=== PATIENT | female | born 1990 | race American Indian/Alaskan Native ===

== ENCOUNTER 2017-10-13 13:10 | Emergency (ER) | payer OTHER ==
[2017-10-13 13:28] VITALS: BP 119/78
--- NOTE | 2017-10-13 13:31 | EDM.PDOC ---
ED HPI GENERAL MEDICAL PROBLEM - General Chief Complaint: ENT Problem Stated Complaint: EARACHE AND HEADACHE Time Seen by Provider: 10/13/17 13:31 Source of Information: Reports: Patient - History of Present Illness INITIAL COMMENTS - FREE TEXT/NARRATIVE: HISTORY AND PHYSICAL: History of present illness: []Patient presents with right ear pain for 5 days increasing in severity no fever nausea vomiting chills sweats mild sore throat no uptake of voice drooling or trismus Review of systems: As per history of present illness and below otherwise all systems reviewed and negative. Past medical history: As per history of present illness and as reviewed below otherwise noncontributory. Surgical history: As per history of present illness and as reviewed below otherwise noncontributory. Social history: No reported history of drug or alcohol abuse. Family history: As per history of present illness and as reviewed below otherwise noncontributory. Physical exam: HEENT: Atraumatic, normocephalic, pupils reactive, negative for conjunctival pallor or scleral icterus, mucous membranes moist, throat clear, neck supple, nontender, trachea midline. Oropharynx mild erythema no exudate or Sargent no pain with movement of the ear auricles right tympanic membrane is red bulging loss of landmarks no mastoid tenderness left mildly injected with slight diffusion no loss of landmarks no mastoid tenderness Lungs: Clear to auscultation, breath sounds equal bilaterally, chest nontender. Heart: S1S2, regular, negative for clicks, rubs, or JVD. Abdomen: Soft, nondistended, nontender. Negative for masses or hepatosplenomegaly. Negative for costovertebral tenderness. Pelvis: Stable nontender. Genitourinary: Deferred. Rectal: Deferred. Extremities: Atraumatic, negative for cords or calf pain. Neurovascular unremarkable. Neuro: Awake, alert, oriented. Cranial nerves II through XII unremarkable. Cerebellum unremarkable. Motor and sensory unremarkable throughout. Exam nonfocal. Diagnostics: []Clinical Therapeutics: []Serum impaction removed with curette Z-Juan Jose 250 mg Impression: []Right otitis media Serum and impaction cleaned with curette/resolved Definitive disposition and diagnosis as appropriate pending reevaluation and review of above. right ear Pain Score (Numeric/FACES): 7 - Related Data Allergies Allergy/AdvReac Type Severity Reaction Status Date / Time amoxicillin Allergy Airway Verified 10/13/17 13:23 Tightness Home Meds: Home Meds . [No Known Home Meds] 10/13/17 [History] Past Medical History - Past Health History Medical/Surgical History: Denies Medical/Surgical History - Infectious Disease History Infectious Disease History: Reports: Chicken Pox Social & Family History - Tobacco Use Smoking Status *Q: Never Smoker Second Hand Smoke Exposure: No - Alcohol Use Days Per Week of Alcohol Use: 2 Number of Drinks Per Day: 4 Total Drinks Per Week: 8 - Recreational Drug Use Recreational Drug Use: No ED ROS GENERAL - Review of Systems Review Of Systems: ROS reveals no pertinent complaints other than HPI. ED EXAM, GENERAL - Physical Exam Exam: See Below Course - Vital Signs Last Recorded V/S: Last Vital Signs Temp 98.7 F 10/13/17 13:23 Pulse 95 10/13/17 13:23 Resp 20 10/13/17 13:23 BP 119/78 10/13/17 13:23 Pulse Ox 97 10/13/17 13:23 Departure - Departure Time of Disposition: 13:38 Disposition: Home, Self-Care 01 Condition: Good Clinical Impression: Otitis media - Discharge Information Referrals: PCP,None [Primary Care Provider] - Forms: ED Department Discharge Additional Instructions: The following information is given to patients seen in the emergency department who are being discharged to home. This information is to outline your options for follow-up care. We provide all patients seen in our emergency department with a follow-up referral. The need for follow-up, as well as the timing and circumstances, are variable depending upon the specifics of your emergency department visit. If you don't have a primary care physician on staff, we will provide you with a referral. We always advise you to contact your personal physician following an emergency department visit to inform them of the circumstance of the visit and for follow-up with them and/or the need for any referrals to a consulting specialist. The emergency department will also refer you to a specialist when appropriate. This referral assures that you have the opportunity for follow-up care with a specialist. All of these measure are taken in an effort to provide you with optimal care, which includes your follow-up. Under all circumstances we always encourage you to contact your private physician who remains a resource for coordinating your care. When calling for follow-up care, please make the office aware that this follow-up is from your recent emergency room visit. If for any reason you are refused follow-up, please contact the [facility] emergency department at and asked to speak to the emergency department charge nurse.
== END 2017-10-13 14:14 | disposition home or self-care (01) ==
LOC: MW.ED 13:10
DX: H66.91 Otitis media, unspecified, right ear (principal); Z88.1 Allergy status to other antibiotic agents
CPT/HCPCS: 99282

== ENCOUNTER 2023-02-09 00:31 | Emergency (ER) | payer BC, OTHER ==
[2023-02-09] MEDS ORDERED: Sodium Chloride 0.9% 10 ML Syringe FLUSH PRN (00:56)
[2023-02-09] MEDS ORDERED: Sodium Chloride 0.9% 2.5 ML Syringe FLUSH PRN (00:56)
[2023-02-09] MEDS ORDERED: Sodium Chloride 0.9% 1,000 ML IV ONE (00:58)
[2023-02-09] MEDS ORDERED: Acetaminophen 500 MG Tab PO ONE (01:15)
[2023-02-09 01:38] LABS: CARBON DIOXIDE,CO2 26.5 mmol/L (21.0-32.0); POTASSIUM,K 3.4 mmol/L (3.5-5.1)
[2023-02-09] MEDS ORDERED: Ibuprofen 600 MG Tab PO ONE (02:27)
[2023-02-09 02:49] VITALS: BP 117/65; PULSE 76
== END 2023-02-09 02:50 | disposition home or self-care (01) ==
LOC: MW.ED 00:31
DX: O20.0 Threatened abortion (principal); Z88.0 Allergy status to penicillin; Z3A.01 Less than 8 weeks gestation of pregnancy
CPT/HCPCS: 36415; 76801; 80053; 84702; 85025; 85610; 86900; 86901; 96360; 99284; A9270; J3490; J7030; 99283

== ENCOUNTER 2023-08-28 14:57 | Inpatient (IN) | payer BC ==
[2023-09-25] MEDS ORDERED: Carboprost Tromethamine 250 MCG/1 mL Vial IM PRN ×2 (05:00→20:00)
[2023-09-25] MEDS ORDERED: Oxytocin/0.9 % Sodium Chloride 30 UNIT/500 ML BAG IV SCH ×2 (05:00)
[2023-09-25] MEDS ORDERED: Methylergonovine 0.2 MG/1 ML Amp IM PRN ×2 (05:00→20:00)
[2023-09-25] MEDS ORDERED: Sodium Chloride 0.9% 10 ML Syringe FLUSH PRN (05:00)
[2023-09-25] MEDS ORDERED: Nalbuphine 10 MG/0.5 ML Syringe IVPUSH PRN (05:00)
[2023-09-25] MEDS ORDERED: Lidocaine 1% 50 ML MDV INJECT PRN (05:00)
[2023-09-25] MEDS ORDERED: Terbutaline 1 MG/ML SDV SUBCUT PRN (05:00)
[2023-09-25] MEDS ORDERED: Sodium Chloride 0.9% 2.5 ML Syringe FLUSH PRN (05:00)
[2023-09-25] MEDS ORDERED: Sodium Chloride 0.9% 20 ML SDV IV PRN (05:00)
[2023-09-25] MEDS ORDERED: Misoprostol 200 MCG Tab PO PRN ×2 (05:00→20:00)
[2023-09-25] MEDS ORDERED: Tranexamic Acid IN NACL,ISO-OS 1,000 MG in Premix Bag 1 BAG IV PRN ×2 (05:00)
[2023-09-25] MEDS ORDERED: Water For Irrigation,Sterile 1,000 ML Container IRR PRN (05:00)
[2023-09-25] MEDS ORDERED: ceFAZolin 2 GM in Sodium Chloride 0.9% 50 ML IV ONE (05:30)
[2023-09-25] MEDS: Lactated Ringers 1,000 ML IV SCH ×4 (05:58→23:23)
[2023-09-25 06:17] LABS: HEMATOCRIT 36.5 % (37.0-47.0); HEMOGLOBIN 12.6 g/dL (12.0-16.0); MEAN CORPUSCULAR HEMOGLOBIN 27.9 pg (28.0-32.0); MEAN CORPUSCULAR HGB CONC 34.5 g/dL (32.0-36.0); MEAN CORPUSCULAR VOLUME 80.8 fL (83.0-99.0); MEAN PLATELET VOLUME 12.2 fL (9.4-12.3); PLATELET COUNT,PLT 155 K/uL (150-400); RED BLOOD CELL COUNT 4.52 M/uL (4.10-5.30); WHITE BLOOD CELL COUNT,WBC 5.84 K/uL (3.9-11.3)
[2023-09-25] MEDS ORDERED: Ropivacaine/PF 400 MG/200 ML PCA ONE (08:40)
[2023-09-25] MEDS ORDERED: dexmedeTOMIDine HCl 200 MCG/2 ML SDV ONE (08:40)
[2023-09-25] MEDS ORDERED: Phenylephrine HCl 0.5 MG/5 ML AMP ONE (08:40)
[2023-09-25] MEDS ORDERED: Phenylephrine HCl 0.5 MG/5 ML AMP IVPUSH PRN (08:59)
[2023-09-25] MEDS ORDERED: ePHEDrine 50 MG/ML SDV IVPUSH PRN ×2 (08:59)
[2023-09-25] MEDS ORDERED: Ropivacaine HCl/PF 400 MG in Premix Bag 1 BAG EPIDUR SCH (09:00)
[2023-09-25] MEDS ORDERED: ceFAZolin 1 GM in Sodium Chloride 0.9% 50 ML IV SCH (13:30)
[2023-09-25] MEDS: Ondansetron 4 MG/2 ML SDV IVPUSH PRN ×2 (13:44→18:22)
[2023-09-25] MEDS: Tranexamic Acid IN NACL,ISO-OS 1,000 MG in Premix Bag 1 BAG IV PRN ×4 (17:33→23:18)
[2023-09-25 18:05] LABS: HEMATOCRIT 14.9 % (37.0-47.0); HEMOGLOBIN 5.4 g/dL (12.0-16.0); MEAN CORPUSCULAR HEMOGLOBIN 29.3 pg (28.0-32.0); MEAN CORPUSCULAR HGB CONC 36.2 g/dL (32.0-36.0); MEAN PLATELET VOLUME 11.9 fL (9.4-12.3); PLATELET COUNT,PLT 77 K/uL (150-400); RED BLOOD CELL COUNT 1.84 M/uL (4.10-5.30); WHITE BLOOD CELL COUNT,WBC 4.65 K/uL (3.9-11.3)
[2023-09-25] MEDS ORDERED: Calcium Gluconate 10% 1 GM/10 ML SDV ONE (18:14)
[2023-09-25] MEDS ORDERED: droPERidol 5 MG/2 ML SDV ONE (18:31)
[2023-09-25 18:41] LABS: SEG NEUTROPHILS ABSOLUTE MAN 4.09 K/uL (1.80-7.70); SEG NEUTROPHILS PERCENT MAN 88 % (41-71)
[2023-09-25 18:42] LABS: LYMPHOCYTES ABSOLUTE MAN 0.51 K/uL (1.00-4.80); LYMPHOCYTES PERCENT MAN 11 % (24-44); MONOCYTES ABSOLUTE MAN 0.05 K/uL (0.00-0.80); MONOCYTES PERCENT MAN 1 % (0-8)
[2023-09-25 18:43] LABS: INR 1.23 (0.86-1.11); PTT,PARTIAL THROMBOPLSTIN TIME 35.4 SEC (23.9-30.7)
[2023-09-25 18:44] LABS: ALKALINE PHOSPHATASE 41 U/L (46-116); ASPARTATE AMNIOTRANSFERASE,AST 7 IU/L (15-37); BILIRUBIN TOTAL 0.1 mg/dL (0.2-1.0); BLOOD UREA NITROGEN,BUN 2 mg/dL (7.0-18.0); CARBON DIOXIDE,CO2 7.7 mmol/L (21.0-32.0); CHLORIDE,CL 104 mmol/L (98-107); CREATININE <0.2 mg/dL (0.6-1.0); SODIUM,NA 130 mmol/L (136-145)
[2023-09-25 18:47] LABS: POTASSIUM,K 1.1 mmol/L (3.5-5.1)
[2023-09-25 18:49] LABS: A/G RATIO 0.6 (0.9-1.6); ALANINE AMINOTRANSFERASE,ALT 0 IU/L (14-63); ALBUMIN 0.5 g/dL (3.4-5.0); CALCIUM 2.7 mg/dL (8.5-10.1); GLUCOSE RANDOM 25 mg/dL (74-106); PROTEIN TOTAL,TP 1.3 g/dL (6.4-8.2)
[2023-09-25 19:04] LABS: HEMATOCRIT 38.4 % (37.0-47.0); HEMOGLOBIN 13.6 g/dL (12.0-16.0); MEAN CORPUSCULAR HEMOGLOBIN 29.1 pg (28.0-32.0); MEAN CORPUSCULAR HGB CONC 35.4 g/dL (32.0-36.0); MEAN CORPUSCULAR VOLUME 82.1 fL (83.0-99.0); MEAN PLATELET VOLUME 11.9 fL (9.4-12.3); PLATELET COUNT,PLT 115 K/uL (150-400); RED BLOOD CELL COUNT 4.68 M/uL (4.10-5.30); WHITE BLOOD CELL COUNT,WBC 10.92 K/uL (3.9-11.3)
[2023-09-25 19:29] LABS: A/G RATIO 0.7 (0.9-1.6); ALBUMIN 2.2 g/dL (3.4-5.0); BILIRUBIN TOTAL 0.6 mg/dL (0.2-1.0); CALCIUM 9.4 mg/dL (8.5-10.1); CREATININE 0.6 mg/dL (0.6-1.0); EST CRCL DRUG DOSING (CG) 102.52 mL/min; POTASSIUM,K 4.7 mmol/L (3.5-5.1); PROTEIN TOTAL,TP 5.3 g/dL (6.4-8.2)
[2023-09-25] MEDS ORDERED: Lanolin 100% Cream 7 GM Tube TOP PRN ×2 (19:57→20:00)
[2023-09-25] MEDS ORDERED: Bisacodyl 10 MG Supp RECTAL PRN ×2 (19:57→20:00)
[2023-09-25] MEDS ORDERED: Witch Hazel Medicated Pads 40/Jar TOP PRN ×2 (19:57→20:00)
[2023-09-25] MEDS ORDERED: oxyCODONE 5 MG Tab PO PRN ×2 (19:57→20:00)
[2023-09-25] MEDS ORDERED: Benzocaine/Menthol 20%-0.5% Spray 78 GM Cannister TOP PRN ×2 (19:57→20:00)
[2023-09-25] MEDS ORDERED: Docusate Sodium 100 MG Cap PO PRN (20:00)
[2023-09-25] MEDS ORDERED: Ibuprofen 800 MG Tab PO PRN (20:00)
[2023-09-25] MEDS ORDERED: Acetaminophen 500 MG Tab PO PRN (20:00)
[2023-09-25] MEDS: ceFAZolin 1 GM in Sodium Chloride 0.9% 50 ML IV SCH (21:05)
[2023-09-25] MEDS: Acetaminophen 500 MG Tab PO PRN (21:51)
[2023-09-25 22:01] LABS: HEMATOCRIT 33.2 % (37.0-47.0); HEMOGLOBIN 11.8 g/dL (12.0-16.0); MEAN CORPUSCULAR HEMOGLOBIN 28.6 pg (28.0-32.0); MEAN CORPUSCULAR HGB CONC 35.5 g/dL (32.0-36.0); MEAN CORPUSCULAR VOLUME 80.4 fL (83.0-99.0); MEAN PLATELET VOLUME 11.9 fL (9.4-12.3); PLATELET COUNT,PLT 108 K/uL (150-400); RED BLOOD CELL COUNT 4.13 M/uL (4.10-5.30); WHITE BLOOD CELL COUNT,WBC 10.19 K/uL (3.9-11.3)
[2023-09-25 22:32] LABS: PTT,PARTIAL THROMBOPLSTIN TIME 26.5 SEC (23.9-30.7)
[2023-09-25 22:35] LABS: CALCIUM 8.8 mg/dL (8.5-10.1); CARBON DIOXIDE,CO2 19.7 mmol/L (21.0-32.0); CREATININE 0.5 mg/dL (0.6-1.0); EST CRCL DRUG DOSING (CG) 123.02 mL/min; POTASSIUM,K 3.8 mmol/L (3.5-5.1)
[2023-09-26] MEDS: Ibuprofen 800 MG Tab PO PRN ×2 (03:27→20:41)
[2023-09-26] MEDS: ceFAZolin 1 GM in Sodium Chloride 0.9% 50 ML IV SCH ×3 (04:30→20:29)
[2023-09-26] MEDS: Lactated Ringers 1,000 ML IV SCH (05:58)
[2023-09-26 06:46] LABS: HEMATOCRIT 29.1 % (37.0-47.0); HEMOGLOBIN 10.3 g/dL (12.0-16.0); MEAN CORPUSCULAR HEMOGLOBIN 28.8 pg (28.0-32.0); MEAN CORPUSCULAR HGB CONC 35.4 g/dL (32.0-36.0); MEAN CORPUSCULAR VOLUME 81.3 fL (83.0-99.0); MEAN PLATELET VOLUME 12.7 fL (9.4-12.3); PLATELET COUNT,PLT 109 K/uL (150-400); RED BLOOD CELL COUNT 3.58 M/uL (4.10-5.30); WHITE BLOOD CELL COUNT,WBC 8.64 K/uL (3.9-11.3)
[2023-09-26 07:08] LABS: INR 1.02 (0.86-1.11); PTT,PARTIAL THROMBOPLSTIN TIME 27.4 SEC (23.9-30.7)
[2023-09-26 07:17] LABS: A/G RATIO 0.6 (0.9-1.6); ALBUMIN 1.9 g/dL (3.4-5.0); BILIRUBIN TOTAL 0.7 mg/dL (0.2-1.0); CALCIUM 8.6 mg/dL (8.5-10.1); CARBON DIOXIDE,CO2 21.9 mmol/L (21.0-32.0); CREATININE 0.6 mg/dL (0.6-1.0); EST CRCL DRUG DOSING (CG) 102.52 mL/min; PROTEIN TOTAL,TP 5.1 g/dL (6.4-8.2)
[2023-09-26] MEDS: Acetaminophen 500 MG Tab PO PRN ×2 (08:12→17:31)
[2023-09-26 15:18] LABS: HEMATOCRIT 28.4 % (37.0-47.0); HEMOGLOBIN 10.1 g/dL (12.0-16.0); MEAN CORPUSCULAR HEMOGLOBIN 28.5 pg (28.0-32.0); MEAN CORPUSCULAR HGB CONC 35.6 g/dL (32.0-36.0); MEAN CORPUSCULAR VOLUME 80.2 fL (83.0-99.0); MEAN PLATELET VOLUME 12.4 fL (9.4-12.3); PLATELET COUNT,PLT 115 K/uL (150-400); RED BLOOD CELL COUNT 3.54 M/uL (4.10-5.30); WHITE BLOOD CELL COUNT,WBC 8.98 K/uL (3.9-11.3)
[2023-09-26 15:43] LABS: A/G RATIO 0.7 (0.9-1.6); ALBUMIN 2.1 g/dL (3.4-5.0); BILIRUBIN TOTAL 0.4 mg/dL (0.2-1.0); CALCIUM 8.4 mg/dL (8.5-10.1); CARBON DIOXIDE,CO2 21.5 mmol/L (21.0-32.0); CREATININE 0.8 mg/dL (0.6-1.0); EST CRCL DRUG DOSING (CG) 76.89 mL/min; POTASSIUM,K 4.1 mmol/L (3.5-5.1); PROTEIN TOTAL,TP 5.3 g/dL (6.4-8.2)
[2023-09-26] MEDS: Docusate Sodium 100 MG Cap PO PRN (20:40)
[2023-09-27] MEDS: Acetaminophen 500 MG Tab PO PRN (04:40)
[2023-09-27] MEDS: Ibuprofen 800 MG Tab PO PRN (09:21)
[2023-09-27] MEDS: Docusate Sodium 100 MG Cap PO PRN (09:22)
[2023-09-27 10:51] VITALS: BP 132/68
[2023-09-27 15:16] VITALS: PULSE 56
== END 2023-09-27 11:58 | disposition home or self-care (01) | DRG 560 ==
LOC: MW.OB 14:57 → UNDOADMOB 09-25 04:54 → MW.OB 09-25 04:54 → OBSVTOIN 09-25 16:21 → MW.ICU 09-25 18:38 → MW.OB 09-26 11:00
PROVIDERS: ADMIT Obstetrics & Gynecology; ATTEND Obstetrics & Gynecology
PROC: 10E0XZZ Delivery of Products of Conception, External Approach (ICD-10-PCS; principal; 2023-09-25)
PROC: 3E033VJ Introduction of Other Hormone into Peripheral Vein, Percutaneous Approach (ICD-10-PCS; 2023-09-25)
PROC: 3E0R3BZ Introduction of Anesthetic Agent into Spinal Canal, Percutaneous Approach (ICD-10-PCS; 2023-09-25)
PROC: 00HU33Z Insertion of Infusion Device into Spinal Canal, Percutaneous Approach (ICD-10-PCS; 2023-09-25)
DX: O42.02 Full-term premature rupture of membranes, onset of labor within 24 hours of rupture (principal); O72.1 Other immediate postpartum hemorrhage; O66.0 Obstructed labor due to shoulder dystocia; D62 Acute posthemorrhagic anemia; O99.03 Anemia complicating the puerperium; I95.9 Hypotension, unspecified; O99.824 Streptococcus B carrier state complicating childbirth; Z37.0 Single live birth; Z3A.39 39 weeks gestation of pregnancy; Z88.0 Allergy status to penicillin
CPT/HCPCS: 01967; 36415; 36430; 51702; 59025; 59409; 80048; 80053; 82330; 83605; 85007; 85014; 85018; 85027; 85384; 85610; 85730; 86592; 86850; 86900; 86901; 86920; A9270-GY; J0690; J1790; J2210; J2300; J2371; J2405; J2590; J2795; J3490; J7120; P9016; P9017

== ENCOUNTER 2023-09-28 21:23 | Inpatient (IN) | payer BC ==
[2023-09-28] MEDS ORDERED: Sodium Chloride 0.9% 10 ML Syringe FLUSH PRN ×2 (21:45→22:44)
[2023-09-28] MEDS ORDERED: Sodium Chloride 0.9% 2.5 ML Syringe FLUSH PRN ×2 (21:45→22:44)
[2023-09-28] MEDS ORDERED: Labetalol 100 MG/20 ML MDV IVPUSH ONE ×2 (21:45→23:34)
[2023-09-28 21:54] LABS: BASOPHILS ABSOLUTE AUTO 0.04 K/uL (0.00-0.20); BASOPHILS PERCENT AUTO 0.5 % (0.0-1.0); EOSINOPHILS PERCENT AUTO 1.2 % (0.0-6.0); HEMATOCRIT 31.8 % (37.0-47.0); HEMOGLOBIN 11.1 g/dL (12.0-16.0); IMMATURE GRAN ABSOLUTE AUTO 0.04 K/uL (0.00-0.05); IMMATURE GRAN PERCENT AUTO 0.5 % (0.0-0.4); LYMPHOCYTES ABSOLUTE AUTO 1.77 K/uL (1.00-4.80); LYMPHOCYTES PERCENT AUTO 21.3 % (24.0-44.0); MEAN CORPUSCULAR HEMOGLOBIN 28.6 pg (28.0-32.0); MEAN CORPUSCULAR HGB CONC 34.9 g/dL (32.0-36.0); MEAN PLATELET VOLUME 11.7 fL (9.4-12.3); MONOCYTES ABSOLUTE AUTO 0.32 K/uL (0.00-0.80); MONOCYTES PERCENT AUTO 3.9 % (0.0-8.0); NEUTROPHILS ABSOLUTE AUTO 6.04 K/uL (1.80-7.70); NEUTROPHILS PERCENT AUTO 72.6 % (41.0-71.0); PLATELET COUNT,PLT 157 K/uL (150-400); RED BLOOD CELL COUNT 3.88 M/uL (4.10-5.30); WHITE BLOOD CELL COUNT,WBC 8.31 K/uL (3.9-11.3)
[2023-09-28 22:01] LABS: INR 0.97 (0.86-1.11)
[2023-09-28 22:05] LABS: A/G RATIO 0.7 (0.9-1.6); ALBUMIN 2.7 g/dL (3.4-5.0); BILIRUBIN TOTAL 0.4 mg/dL (0.2-1.0); CARBON DIOXIDE,CO2 26.7 mmol/L (21.0-32.0); CREATININE 0.7 mg/dL (0.6-1.0); EST CRCL DRUG DOSING (CG) 87.87 mL/min; POTASSIUM,K 3.9 mmol/L (3.5-5.1); PROTEIN TOTAL,TP 6.4 g/dL (6.4-8.2)
[2023-09-28 22:21] LABS: APPEARANCE,URINE CLEAR; BILIRUBIN,URINE NEGATIVE (NEGATIVE); COLOR,URINE YELLOW; GLUCOSE,URINE NEGATIVE (NEGATIVE); KETONES,URINE NEGATIVE (NEGATIVE); LEUKOCYTE ESTERASE,URINE NEGATIVE (NEGATIVE); NITRITE,URINE NEGATIVE (NEGATIVE); OCCULT BLOOD,URINE NEGATIVE (NEGATIVE); PH,URINE 7.5 (5.0-8.0); PROTEIN,URINE NEGATIVE (NEGATIVE); UROBILINOGEN,URINE 0.2 EU/dL (<2.0)
[2023-09-28] MEDS ORDERED: Magnesium Sulfate (4.06 MEQ/ML) 1 GM/2 ML SDV IV ONE ×2 (22:35→22:39)
[2023-09-28] MEDS ORDERED: Sodium Chloride 0.9% 20 ML SDV IV PRN (22:44)
[2023-09-28] MEDS ORDERED: Calcium Gluconate 10% 1 GM/10 ML SDV IV PRN (22:44)
[2023-09-28] MEDS ORDERED: Magnesium Sulfate/Water 4 GM in Premix Bag 1 BAG IV ONE (22:44)
[2023-09-28 22:52] LABS: CREATININE,URINE RAND 4.1 mg/dL; PROTEIN CREATININE RATIO,URINE 2.3; PROTEIN,URINE RANDOM 9.3 mg/dL (<11.9)
[2023-09-28] MEDS ORDERED: Magnesium Sulfate/Water 50 ML IV ONE (23:00)
[2023-09-28] MEDS ORDERED: Labetalol 100 MG/20 ML MDV ONE (23:31)
[2023-09-28] MEDS: Magnesium Sulfate/Water 20 GM/500 ML BAG IV SCH (23:42)
[2023-09-28] MEDS: Labetalol 100 MG Tab PO SCH (23:55)
[2023-09-28] MEDS: Acetaminophen 325 MG Tab PO PRN (23:58)
[2023-09-29] MEDS ORDERED: Docusate Sodium 100 MG Cap PO PRN (00:52)
[2023-09-29] MEDS: Ferrous Sulfate 325 MG Tab PO SCH (08:35)
[2023-09-29] MEDS: Labetalol 100 MG Tab PO SCH ×2 (08:36→21:13)
[2023-09-29] MEDS: Ibuprofen 800 MG Tab PO PRN ×2 (08:37→16:13)
[2023-09-29] MEDS: Magnesium Sulfate/Water 20 GM/500 ML BAG IV SCH ×2 (10:10→20:36)
[2023-09-29] MEDS: Acetaminophen 325 MG Tab PO PRN (12:27)
[2023-09-30] MEDS: Acetaminophen 325 MG Tab PO PRN (06:37)
[2023-09-30] MEDS: Labetalol 100 MG Tab PO SCH (09:18)
[2023-09-30] MEDS: Ferrous Sulfate 325 MG Tab PO SCH (09:20)
[2023-09-30] MEDS: Ibuprofen 800 MG Tab PO PRN (09:20)
[2023-09-30 10:05] VITALS: BP 140/92; PULSE 62
== END 2023-09-30 09:50 | disposition home or self-care (01) | DRG 561 ==
LOC: MW.ED 21:23 → MW.OB 21:59
PROVIDERS: ADMIT Obstetrics & Gynecology; ATTEND Obstetrics & Gynecology
DX: O14.15 Severe pre-eclampsia, complicating the puerperium (principal); R51.9 Headache, unspecified
CPT/HCPCS: 36415; 51702; 80053; 81003; 82570; 83615; 83735; 84156; 85025; 85610; 96374; 99284-25; 99285; A9270-GY; J1920; J3475; J3490

== ENCOUNTER 2023-09-30 19:22 | Inpatient (IN) | payer BC ==
[2023-09-30] MEDS ORDERED: diphenhydrAMINE 50 MG/ML SDV IVPUSH ONE ×2 (19:35→20:09)
[2023-09-30] MEDS ORDERED: Sodium Chloride 0.9% 10 ML Syringe FLUSH PRN (19:35)
[2023-09-30] MEDS ORDERED: Sodium Chloride 0.9% 1,000 ML IV ONE (19:35)
[2023-09-30] MEDS ORDERED: Metoclopramide 10 MG/2 ML SDV IVPUSH ONE ×2 (19:35→20:09)
[2023-09-30] MEDS ORDERED: Sodium Chloride 0.9% 2.5 ML Syringe FLUSH PRN (19:35)
[2023-09-30 19:42] LABS: BASOPHILS ABSOLUTE AUTO 0.03 K/uL (0.00-0.20); BASOPHILS PERCENT AUTO 0.4 % (0.0-1.0); EOSINOPHILS ABSOLUTE AUTO 0.16 K/uL (0.00-0.45); EOSINOPHILS PERCENT AUTO 2.4 % (0.0-6.0); HEMATOCRIT 33.2 % (37.0-47.0); HEMOGLOBIN 11.6 g/dL (12.0-16.0); IMMATURE GRAN ABSOLUTE AUTO 0.03 K/uL (0.00-0.05); IMMATURE GRAN PERCENT AUTO 0.4 % (0.0-0.4); LYMPHOCYTES ABSOLUTE AUTO 1.42 K/uL (1.00-4.80); LYMPHOCYTES PERCENT AUTO 21.3 % (24.0-44.0); MEAN CORPUSCULAR HGB CONC 34.9 g/dL (32.0-36.0); MEAN PLATELET VOLUME 11.2 fL (9.4-12.3); MONOCYTES ABSOLUTE AUTO 0.23 K/uL (0.00-0.80); MONOCYTES PERCENT AUTO 3.4 % (0.0-8.0); NEUTROPHILS ABSOLUTE AUTO 4.81 K/uL (1.80-7.70); NEUTROPHILS PERCENT AUTO 72.1 % (41.0-71.0); PLATELET COUNT,PLT 196 K/uL (150-400); WHITE BLOOD CELL COUNT,WBC 6.68 K/uL (3.9-11.3)
[2023-09-30 19:55] LABS: INR 0.97 (0.86-1.11); PTT,PARTIAL THROMBOPLSTIN TIME 23.6 SEC (23.9-30.7)
[2023-09-30] MEDS ORDERED: Labetalol 100 MG/20 ML MDV IVPUSH ONE ×4 (20:07→22:21)
[2023-09-30 20:25] LABS: A/G RATIO 0.8 (0.9-1.6); BILIRUBIN TOTAL 0.4 mg/dL (0.2-1.0); CALCIUM 8.6 mg/dL (8.5-10.1); CARBON DIOXIDE,CO2 26.1 mmol/L (21.0-32.0); CREATININE 0.5 mg/dL (0.6-1.0); EST CRCL DRUG DOSING (CG) 123.02 mL/min; POTASSIUM,K 3.6 mmol/L (3.5-5.1); PROTEIN TOTAL,TP 6.9 g/dL (6.4-8.2)
[2023-09-30 21:12] LABS: BILIRUBIN,URINE NEGATIVE (NEGATIVE); COLOR,URINE YELLOW; GLUCOSE,URINE NEGATIVE (NEGATIVE); KETONES,URINE TRACE mg/dL (NEGATIVE); LEUKOCYTE ESTERASE,URINE SMALL (NEGATIVE); NITRITE,URINE NEGATIVE (NEGATIVE); OCCULT BLOOD,URINE MODERATE (NEGATIVE); PH,URINE 7.5 (5.0-8.0); PROTEIN,URINE NEGATIVE (NEGATIVE); UROBILINOGEN,URINE 0.2 EU/dL (<2.0)
[2023-09-30] MEDS ORDERED: Iopamidol 755 MG/ML 500 ML Multipack Bottle IVPUSH ONE (21:16)
[2023-09-30 21:26] LABS: PROTEIN CREATININE RATIO,URINE 0.9; PROTEIN,URINE RANDOM 9.2 mg/dL (<11.9)
[2023-09-30 22:03] LABS: APPEARANCE,URINE HAZY; BACTERIA,URINE FEW (NEGATIVE); EPITHELIAL CELLS,URINE RARE (NONE-FEW)
[2023-09-30] MEDS ORDERED: Magnesium Sulfate/Water 2 GM in Premix Bag 1 BAG IV ONE (22:25)
[2023-09-30] MEDS ORDERED: hydrALAZINE 20 MG/ML SDV IVPUSH ONE (22:37)
[2023-09-30] MEDS ORDERED: NIFEdipine 30 MG Tab.ER PO ONE (22:42)
[2023-09-30] MEDS ORDERED: Furosemide 20 MG Tab PO ONE (23:13)
[2023-09-30] MEDS ORDERED: Acetaminophen 325 MG Tab PO PRN (23:14)
[2023-09-30] MEDS ORDERED: Morphine 4 MG/ML Syringe IVPUSH STA (23:39)
[2023-09-30] MEDS: niCARdipine/Normal Saline 20 MG/200 ML BAG IV SCH (23:40)
[2023-09-30] MEDS ORDERED: Furosemide 40 MG Tab ONE (23:45)
[2023-09-30] MEDS ORDERED: Furosemide 40 MG Tab PO STA (23:49)
[2023-10-01] MEDS: Ibuprofen 800 MG Tab PO PRN ×2 (03:45→16:08)
[2023-10-01] MEDS ORDERED: Potassium Chloride 20 MEQ Tab.ER PO ONE (04:11)
[2023-10-01] MEDS: niCARdipine/Normal Saline 20 MG/200 ML BAG IV SCH ×3 (05:49→22:20)
[2023-10-01] MEDS ORDERED: Labetalol 100 MG Tab PO SCH (09:00)
[2023-10-01] MEDS ORDERED: Labetalol 100 MG Tab PO ONE (12:08)
[2023-10-01] MEDS: Escitalopram 10 MG Tab PO SCH (18:46)
[2023-10-01] MEDS: Labetalol 100 MG Tab PO SCH (21:08)
[2023-10-02] MEDS: Labetalol 100 MG Tab PO SCH ×2 (05:02→13:08)
[2023-10-02] MEDS: Escitalopram 10 MG Tab PO SCH (09:07)
[2023-10-02] MEDS ORDERED: NIFEdipine 30 MG Tab.ER PO SCH (10:45)
[2023-10-02 17:50] VITALS: BP 126/87; PULSE 80
== END 2023-10-02 18:20 | disposition home or self-care (01) | DRG 561 ==
LOC: MW.ED 19:22 → MW.ICU 22:38 → OBSVTOIN 10-01 17:30
PROVIDERS: ADMIT Obstetrics & Gynecology; ATTEND Obstetrics & Gynecology
DX: O14.15 Severe pre-eclampsia, complicating the puerperium (principal); O99.345 Other mental disorders complicating the puerperium; F41.9 Anxiety disorder, unspecified; F34.1 Dysthymic disorder; R51.9 Headache, unspecified; O99.893 Other specified diseases and conditions complicating puerperium; Z88.0 Allergy status to penicillin
CPT/HCPCS: 36415; 70450; 70450-26; 70496; 70496-26; 70551; 70551-26; 80053; 81001; 82570; 83615; 83690; 84156; 84484; 85025; 85610; 85730; 93005; 93010; 93306; 96374; 96375; 96376; 99291; A9270-GY; J1200; J1920; J2270; J2765; J3475; J3490; J7030; Q9967